=== PATIENT | female | born 1995 | race Caucasian/White ===

== ENCOUNTER 2017-01-29 11:36 | Emergency (ER) | payer OTHER ==
[2017-01-29 11:42] VITALS: RESP 16
[2017-01-29 11:59] LABS: COLOR YELLOW; LEUKOCYTE ESTERASE,URINE TRACE (NEGATIVE); NITRITE,URINE NEGATIVE (NEGATIVE)
[2017-01-29 12:15] LABS: MUCUS TRACE /lpf (NONE-1+)
--- NOTE | 2017-01-29 13:28 | EDPHY ---
H & P Stated Complaint: bi-lat flank pain & urinary diff. Time Seen by Provider: 01/29/17 11:48 HPI/ROS: CHIEF COMPLAINT: Urinary symptoms HISTORY OF PRESENT ILLNESS: 21-year-old female presents emergency department complaining of urinary frequency, urgency and dysuria x3 days. patient reports she has been drinking cranberry juice at home to help with the symptoms. Patient states today she noticed a low back ache. She denies fevers, chills, nausea and vomiting. no abdominal pain, vaginal discharge, vaginal bleeding. REVIEW OF SYSTEMS: A comprehensive 10 point review of systems is otherwise negative aside from elements mentioned in the history of present illness. Source: Patient Exam Limitations: No limitations - Personal History LMP (Females 10-55): 1-7 Days Ago Current Tetanus/Diphtheria Vaccine: Unsure Current Tetanus Diphtheria and Acellular Pertussis (TDAP): Unsure - Medical/Surgical History Hx Asthma: No Hx Chronic Respiratory Disease: No Hx Diabetes: No Hx Cardiac Disease: No Hx Renal Disease: No Hx Cirrhosis: No Hx Alcoholism: No Hx HIV/AIDS: No Hx Splenectomy or Spleen Trauma: No - Social History Smoking Status: Current every day smoker - Physical Exam Exam: Physical Exam Gen: Alert and Oriented, NAD HEENT: PERRL, moist mucous membranes NECK: no meningismus CV: regular rate and regular rhythm PULM: CTAB, no wheezes ABDOMEN: soft, non tender to palpation, BS present BACK: No CVA tenderness NEURO: Neurologically grossly intact EXTREMITIES: normal appearing SKIN: no rash or break in skin on exposed skin PSYCH: answers questions appropriately. Constitutional: Initial Vital Signs Temperature (C) 36.8 C 01/29/17 11:39 Heart Rate 85 01/29/17 11:39 Respiratory Rate 16 01/29/17 11:39 Blood Pressure 134/97 H 01/29/17 11:39 O2 Sat (%) 100 01/29/17 11:39 O2 Delivery Mode Room Air Allergies/Adverse Reactions: No Known Allergies Allergy (Unverified 11/07/10 07:04) Home Medications: Medication Instructions Recorded NO HOME MEDS 11/18/09 Hydrocodone/APAP 5/325 [[place] 5 mg PO Q4PRN PRN #1 tab 01/19/11 5/325 (*)] Hydrocodone/APAP 5/325 [[place] 5 mg PO Q4PRN PRN #12 tab 01/19/11 5/325 (*)] Cephalexin [Keflex] 500 mg PO BID 7 Days 01/29/17 Medical Decision Making ED Course/Re-evaluation: 21-year-old female presents with UTI symptoms x3 days with mild low back pain. Patient with a urinalysis that shows 3-5 WBCs and positive leukocyte esterase. patient is discharged with a prescription for Keflex. She is given return precautions for worsening symptoms, new symptoms or concerns. Urine culture is pending. Differential Diagnosis: Diagnosis considered but not limited to urinary tract infection, pyelonephritis, STD - Data Points Laboratory Results: 01/29/17 01/29/17 11:51 11:51 Urine Color YELLOW Urine Appearance HAZY Urine pH 6.0 (5.0-7.5) Ur Specific [place] 1.009 (1.002-1.030) Urine Protein NEGATIVE (NEGATIVE) Urine Ketones NEGATIVE (NEGATIVE) Urine Blood 1+ H (NEGATIVE) Urine Nitrate NEGATIVE (NEGATIVE) Urine Bilirubin NEGATIVE (NEGATIVE) Urine Urobilinogen NEGATIVE EU EU (0.2-1.0) Ur Leukocyte Esterase TRACE H (NEGATIVE) Urine RBC 1-3 /hpf /hpf (0-3) Urine WBC 3-5 /hpf H /hpf (0-3) Ur Epithelial Cells TRACE /lpf /lpf (NONE-1+) Hyaline Casts 1-5 /lpf /lpf (0-1) Urine Mucus TRACE /lpf /lpf (NONE-1+) Urine Glucose NEGATIVE (NEGATIVE) Urine Test NEGATIVE Departure - Departure Disposition: Home, Routine, Self-Care Clinical Impression: Urinary tract infection Qualifiers: Urinary tract infection type: acute cystitis Hematuria presence: without hematuria Qualified Code(s): N30.00 - Acute cystitis without hematuria Condition: Good Instructions: Urinary Tract Infection in Women (ED) Additional Instructions: Take 500 mg of Keflex twice a day for 7 days. Drink plenty of fluids, take 600 mg of ibuprofen every 8 hours with food as needed for pain. Return to the emergency department for worsening symptoms, fevers, vomiting, increased back pain, new symptoms or concerns. Follow up with your primary care provider for symptoms that are not improving. I have listed the primary care doctor on-call if you do not have a primary care provider. Referrals: Apple,Jose Guadalupe, DO [Medical Doctor] - As per Instructions (Primary care doctor on- call) Prescriptions: Cephalexin [Keflex] 500 mg PO BID 7 Days
[2017-01-29 13:36] VITALS: BP 122/75; PULSE 76; TEMP 97.7; O2SAT 98
== END 2017-01-29 13:36 | disposition home or self-care (01) ==
DX: N30.00 Acute cystitis without hematuria (principal); B96.20 Unspecified Escherichia coli [E. coli] as the cause of diseases classified elsewhere; F17.200 Nicotine dependence, unspecified, uncomplicated